=== PATIENT | male | born 1980 | race Caucasian/White ===

== ENCOUNTER 2020-10-27 21:22 | Inpatient (IN) | payer OTHER ==
[~2020-10-27] VITALS: Ht 193 cm; Wt 111.1 kg
--- NOTE | ~2020-10-27 | HC ---
[facility] [place] [address] CONSULTATION Name: CLAUDIO JONES [facility] Room #: 446-P ADM IN M.R.#: [id number] Admission: 10/28/20 Attend Phys: Alexandre Kearney MD Discharge: Date of : 78 Report #: [id number] THIS REPORT FOR: cc: Holger Luevano,Kt Mckee MD ~ DATE OF SERVICE: 10/30/2020 INFECTIOUS DISEASE CONSULTATION ATTENDING PHYSICIAN: Dr. Kearney. REASON FOR EVALUATION: Complicated urinary tract infection with isolation of coag-negative staph. HISTORY OF PRESENT ILLNESS: Chart reviewed and the patient examined. This is a 40-year-old gentleman who presents with a rather unusual history, several months ago had developed ulcerations in his bowel and bladder, essentially had difficulty voiding and defecating, subsequently developed bilateral leg pain, actually been hospitalized at least two other times, found to have significant spinal stenosis involving the lumbar spine at the L5-S1 site with right-sided foraminal narrowing and she presented to the emergency room with complaints of constipation and the pain became so severe, he was unable to walk. As per the additional evaluation, he did undergo diagnostic testing for possible infection. Chest x-ray was otherwise unremarkable. Urinalysis showed moderate pyuria with significant bacteriuria. Urine culture with greater than ____ Staphylococcus epidermidis. Blood cultures are sterile thus far. Extensive imaging confirmed the spinal stenosis in the L5-S1 site. He denies significant fevers. He notes he has had diminished appetite, although he is not aware of any significant weight loss. He has been initiated on therapy with ceftriaxone. ALLERGIES: None known. MEDICATIONS: Include hydrocodone, pantoprazole, enoxaparin, tamsulosin. PAST MEDICAL HISTORY: As described above, spinal stenosis, severe knee pain. SOCIAL HISTORY: No ethanol, no illicit drug use. Nonsmoker. FAMILY HISTORY: Noncontributory. REVIEW OF SYSTEMS: Otherwise, unremarkable. PHYSICAL EXAMINATION: GENERAL: Mild to moderate distress. Appears somewhat chronically ill. He is mildly encephalopathic. [facility] [address] [place] [address] [facility] Room #: 446-P [facility] IN [facility]#: [id number] Admission: 10/28/20 Attend Phys: Alexandre Kearney MD Discharge: Date of : 78 Report #: [id number] VITAL SIGNS: Temperature 98.7, pulse 67, respirations 18, blood pressure 110/69. SKIN: Warm, no rashes. HEENT: Normocephalic. Extraocular muscles intact. NECK: Supple. LUNGS: Clear breath sounds bilaterally. HEART: Regular. I do not appreciate murmur. ABDOMEN: Soft, nontender. EXTREMITIES: There are no overt peritoneal signs. GENITOURINARY AND RECTAL: Deferred. LABORATORY DATA: FRANKLIN was negative. Quantitative rheumatoid factor was in the negative range. Electrolytes: Sodium 140, potassium 3.7, chloride 105, bicarbonate is 26, anion gap of 9, BUN and creatinine 13 and 0.8, glucose of 87. CBC: White count 2.0, H and H 10.4 and 29.8, platelets of 104. CSF was clear and colorless, 3 white cells, 95 red cells. Glucose 57. Protein 49, upper limit is being 45. Urine culture as described above. Greater than ____ Staph epidermidis. Blood cultures sterile thus far. Sed rate of 5. TSH of 1.457. CPK total of 42. Coronavirus testing was negative. Lactic acid 0.5. Liver functions were otherwise unremarkable. Albumin 3.3, total protein 6.5. ASSESSMENT AND PLAN: 1. Complicated urinary tract infection, became apparent after discussion, he has been utilizing some manual measures to help voiding that could perhaps attribute to the skin related morro. 2. He has pancytopenia of unclear etiology. 3. He has severe spinal stenosis. PLAN: We will continue antibiotics, although adjust dosing to include vancomycin, presuming MRSE in this setting, certainly a complication of likely urine stasis within the bladder serving as a culture media, ____ underlying issues noted. Attempts to obtain records. Neurology is evaluating. Secondly, his pancytopenia of unclear etiology, certainly raises question of occult process even including viral. We will check HIV to exclude some underlying immune depressing issues. Introduce incentive spirometry. Certainly at risk for other complications. By: [id number] Kt Morales MD /nt
[2020-10-27 21:28] VITALS: BP 115/65
[2020-10-27] MEDS ORDERED: METAMUCIL1 EAC1 PO (21:34)
[2020-10-27 22:06] LABS: ABSOLUTE NEUTROPHILS 2.5 thou/uL (1.4-8.2); BASOPHILS 0.1 % (0.0-2.0); EOSINOPHILS 1.3 % (0.0-3.0); HEMATOCRIT 36.7 % (42.0-52.0); HEMOGLOBIN 12.2 gm/dL (14.0-18.0); LYMPHOCYTES 15.8 % (24.0-44.0); MCH 30.6 pg (26.0-34.0); MCHC 33.4 g/dL (28.0-37.0); MCV 91.7 fL (80.0-100.0); MONOCYTES 0.7 % (1.0-8.0); PLATELET COUNT 121 thou/uL (150-400); POLYS 82.1 % (36.0-66.0); WBC 3.1 thou/uL (4.0-11.0)
[2020-10-27 22:15] LABS: CALCIUM 7.9 mg/dL (8.5-10.1); POTASSIUM 4.1 mmol/L (3.5-5.1)
[2020-10-27 22:21] LABS: ALBUMIN 3.3 g/dL (3.4-5.0); TOTAL BILIRUBIN 0.5 mg/dL (0.2-1.0); TOTAL PROTEIN 6.5 g/dL (6.4-8.2)
[2020-10-27 23:07] LABS: URINE BILIRUBIN NEGATIVE (Negative); URINE BLOOD NEGATIVE (Negative); URINE CLARITY SL CLOUDY; URINE COLOR YELLOW; URINE GLUCOSE-RANDOM* NEGATIVE (Negative); URINE KETONES NEGATIVE (Negative); URINE LEUKOCYTES-REFLEX NEGATIVE (Negative); URINE PROTEIN (DIPSTICK) NEGATIVE (Negative)
[2020-10-27 23:14] LABS: URINE NITRITE-REFLEX POSITIVE (Negative)
[2020-10-27 23:16] LABS: BACTERIA-REFLEX >30 Many /HPF (None Seen); SQUAMOUS 0-3 Few /LPF (0-3); URINE RBC 1-2 Rare /HPF (NONE SEEN); URINE WBC-REFLEX 6-15 Few /HPF (0-5)
[2020-10-27 23:17] LABS: CASTS None Seen /LPF (None Seen); CRYSTALS None Seen /LPF (None Seen); MUCUS 0-3 Light strn/LPF (None Seen)
[2020-10-28 07:37] VITALS: BP 143/75
[2020-10-28 07:54] VITALS: BP 116/70
[2020-10-28 08:36] VITALS: BP 123/73
[2020-10-28 17:31] VITALS: BP 114/71
[2020-10-28 19:50] VITALS: BP 103/68
[2020-10-28 21:11] LABS: APTT 25.6 Seconds (24.5-32.8); INR 0.99; PROTIME 10.8 Seconds (10.5-12.1)
[2020-10-29 05:35] LABS: HEMATOCRIT 31.1 % (42.0-52.0); HEMOGLOBIN 10.9 gm/dL (14.0-18.0); MCH 31.8 pg (26.0-34.0); MCHC 35.2 g/dL (28.0-37.0); MCV 90.4 fL (80.0-100.0); RBC 3.44 mil/uL (4.50-6.00); RDW 15.3 % (10.5-14.5); WBC 2.6 thou/uL (4.0-11.0)
[2020-10-29 07:25] VITALS: BP 109/68
[2020-10-29 15:39] LABS: CSF GLUCOSE 57 mg/dL (40-70); CSF PROTEIN 49 mg/dL (15-45)
[2020-10-29 15:40] LABS: CSF COLOR COLORLESS; VOLUME 8 ml
[2020-10-29 15:41] LABS: CSF CLARITY CLEAR
[2020-10-29 15:53] VITALS: BP 119/75
[2020-10-29 16:32] LABS: CSF RBC 95 /mm3; CSF WBC 3 /mm3 (0-10)
[2020-10-29 18:07] LABS: LYME ANTIBODY SCREEN* <0.91 ISR (0.00-0.90)
[2020-10-29 19:20] VITALS: BP 118/68
[2020-10-30 05:38] LABS: HEMATOCRIT 29.8 % (42.0-52.0); HEMOGLOBIN 10.4 gm/dL (14.0-18.0); MCH 30.9 pg (26.0-34.0); MCHC 34.8 g/dL (28.0-37.0); MCV 88.7 fL (80.0-100.0); RBC 3.36 mil/uL (4.50-6.00); RDW 15.4 % (10.5-14.5)
[2020-10-30 06:06] LABS: CALCIUM 8.1 mg/dL (8.5-10.1); CREATININE 0.8 mg/dL (0.7-1.3); POTASSIUM 3.7 mmol/L (3.5-5.1)
[2020-10-30 07:29] VITALS: BP 110/69
[2020-10-30 11:20] LABS: ANA INTERPRETATION Negative (Negative)
[2020-10-30 16:18] VITALS: BP 130/74
[2020-10-30 18:18] LABS: HEMATOCRIT 31.8 % (42.0-52.0); HEMOGLOBIN 10.9 gm/dL (14.0-18.0); MCH 30.9 pg (26.0-34.0); MCHC 34.1 g/dL (28.0-37.0); MCV 90.6 fL (80.0-100.0); PLATELET COUNT 118 thou/uL (150-400); RBC 3.51 mil/uL (4.50-6.00); RDW 14.9 % (10.5-14.5); WBC 2.3 thou/uL (4.0-11.0)
[2020-10-30 18:49] LABS: URIC ACID* 6.3 mg/dL (3.5-7.2)
[2020-10-30 19:17] LABS: ABSOLUTE NEUTROPHILS 1.4 thou/uL (1.4-8.2)
[2020-10-30 19:18] LABS: PLATELET ESTIMATE NORMAL
[2020-10-30 20:01] VITALS: BP 123/75
[2020-10-31 03:37] LABS: HEMATOCRIT 30.5 % (42.0-52.0); HEMOGLOBIN 10.6 gm/dL (14.0-18.0); MCH 31.1 pg (26.0-34.0); MCHC 34.6 g/dL (28.0-37.0); MCV 89.7 fL (80.0-100.0); RBC 3.4 mil/uL (4.50-6.00); RDW 15.1 % (10.5-14.5); WBC 2.3 thou/uL (4.0-11.0)
[2020-10-31 03:48] LABS: CALCIUM 8.1 mg/dL (8.5-10.1); CREATININE 0.8 mg/dL (0.7-1.3)
[2020-10-31 07:15] VITALS: BP 117/71
[2020-10-31 11:48] LABS: DIRECT BILIRUBIN 0.1 mg/dL (<0.1-0.2); TOTAL BILIRUBIN 0.5 mg/dL (0.2-1.0); TOTAL PROTEIN 5.6 g/dL (6.4-8.2)
[2020-10-31 13:02] VITALS: BP 117/71
[2020-10-31] MEDS ORDERED: FLOMAX0.4 MG PO (13:03)
[2020-10-31] MEDS ORDERED: HYDROCODON-ACE1 EAC7 PO (13:03)
[2020-10-31] MEDS ORDERED: BACTRIM DS TAB1 EAC1 PO (13:04)
[2020-10-31] MEDS ORDERED: B-12500 MCG PO (13:04)
[2020-10-31] MEDS ORDERED: FOLIC ACID1 MG PO (13:04)
[2020-10-31 15:09] VITALS: BP 117/71
[2020-10-31 22:06] LABS: SYPHILIS AB Non Reactive (Non Reactive)
[2020-11-01 03:06] LABS: HIV ANTIBODY Non Reactive (Non Reactive)
[2020-11-01 17:07] LABS: HEMOGLOBIN 10.7 g/dL (13.0-17.7)
--- NOTE | 2020-11-02 19:42 | HC ---
[facility] [place] [address] CONSULTATION Name: CLAUDIO JONES [facility] Room #: 446-P [facility] IN M.R.#: [id number] Admission: 10/28/20 Attend Phys: Alexandre Kearney MD Discharge: 10/31/20 Date of : 78 Report #: [id number] THIS REPORT FOR: cc: Holger Luevano,Holger Edouard,Orestes Lambert MD ~ DATE OF SERVICE: 10/28/2020 HISTORY OF PRESENT ILLNESS: This is a 40-year-old male patient who was evaluated by me for progressively worsening weakness of the lower extremity of about 7 months' duration. 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 He became weak initially, forced himself to drive truck, but from last several months he has not been able to do anything. He was initially evaluated at [facility]. Then, he was transferred to [place] for another neurosurgical consult. That is very unusual because [facility] itself has multiple neurosurgeons. Between [facility] and [place] they did MRI; the patient does not know much about it, but it looks like the mother says, that MRI was only of the thoracic spine at one of those institution. In any event, in the Emergency Room they did the MRI of the whole spine. That does show some pathology, but that does not explain the patient's symptoms. It looks like he was evaluated by Dr. Coats and he did not think those can explain the patient's symptoms. In the meantime, the patient has developed constipation first and then he has lost his bladder and bowel that started about a week ago. He was first using a cane and subsequently using a walker and now the family thinks he may have to use a wheelchair. So all the symptoms are progressively worsening for about last 7 months or so. REVIEW OF SYSTEMS: Apparently, he was pretty healthy before, now he has rectal incontinence and urinary incontinence, and he thinks he may be getting weaker even in the arms, but difficult to tell. He says he does not use drugs. He does have some joint pains. PAST MEDICAL HISTORY: Negative for this kind of problem. FAMILY HISTORY: Negative for any neuropathy. SOCIAL HISTORY: He says he does not smoke, drink alcohol or do any drugs. PHYSICAL EXAMINATION: NEUROLOGIC: Indicates he is alert. He is responsive. His speech looks intact. His cranial nerve examinations appear unremarkable. He does look somewhat weak in the upper extremities. He has strength about 4/5, but I do not know what his original strength is. He said he used to work out and he had good strength. In the lower extremity, he does have strength against gravity. He does have a position sense, but he does not have any pinprick and this pinprick starts to appear somewhere in the abdomen area. His touch is absent distal to the knees, [address] [address] CONSULTATION Name: CLAUDIO JONES [facility] Room #: 446-P [facility] [place] [id number] Admission: 10/28/20 Attend Phys: Alexandre Kearney MD Discharge: 10/31/20 Date of : 78 Report #: [id number] but he says he can feel touch of it, what is concerning the most in this patient is that his both plantars are classically upgoing at least that is what it looks like. It does not look like they have withdrawal. He has well elicited reflexes in both knees and there appeared to be hyperreflexia there. CARDIORESPIRATORY: Unremarkable. I reviewed his MRI and the blood workup available. LABORATORY DATA: His white count is only 3.1 and his platelet is 121. His calcium is trace low; his vitamin B12 is normal. IMPRESSION: This patient needs further workup to determine the diagnosis. Firstly, we need to evaluate him for transverse myelitis. If transverse myelitis is confirmed, we need to see if that is because of MS or isolated transverse myelitis. He also need extensive collagen vascular workup. I discussed with the patient and the patient's mother. 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 If MRI of the brain is unremarkable, then we will proceed with a spinal tap in this patient to look for signs of transverse myelitis. I will order a collagen vascular workup in this patient tonight. Rest of the evaluation and management will depend upon the outcome of these testing. He may need steroids or he may need a referral to tertiary care center if we can find any cause because his symptoms are pronounced and the common cause will be transverse myelitis or demyelinating lesions or any collagen vascular disorder, which can cause spine lesions, but if we cannot determine the cause, then he need to be sent to a referral to tertiary care center if somebody will accept him, but we will go ahead and schedule the testing here first and see if we can try to determine the cause. I spent more than 50 minutes of time taking care of this patient today and majority was spent counseling and coordinating care. <ELECTRONICALLY SIGNED> By: Orestes Mccoy MD 11/02/20 [id number] Orestes Mccoy MD /nt
== END 2020-10-31 16:00 | disposition home health service (06) | DRG 690 ==
LOC: ER 21:22 → EROBS 10-28 04:33 → 4W 10-28 04:33 → 4S 10-30 16:53
PROVIDERS: Emergency Medicine; Internal Medicine Hematology & Oncology; Psychiatry & Neurology Neuromuscular Medicine; Specialist; ADMIT Hospitalist; ATTEND Hospitalist
PROC: 009U3ZX Drainage of Spinal Canal, Percutaneous Approach, Diagnostic (ICD-10-PCS; principal; 2020-10-29)
PROC: B01B1ZZ Fluoroscopy of Spinal Cord using Low Osmolar Contrast (ICD-10-PCS; principal; 2020-10-29)
DX: N39.0 Urinary tract infection, site not specified (principal); D61.818 Other pancytopenia; K59.00 Constipation, unspecified; R15.9 Full incontinence of feces; G89.29 Other chronic pain; M25.562 Pain in left knee; M25.561 Pain in right knee; E66.9 Obesity, unspecified; Z68.29 Body mass index [BMI] 29.0-29.9, adult; Z20.822 Contact with and (suspected) exposure to COVID-19; N31.9 Neuromuscular dysfunction of bladder, unspecified; M48.061 Spinal stenosis, lumbar region without neurogenic claudication; B95.7 Other staphylococcus as the cause of diseases classified elsewhere; Z79.899 Other long term (current) drug therapy
CPT/HCPCS: 10040; 10195